=== PATIENT | female | born 1990 | race African-American/Black ===

== ENCOUNTER 2017-07-07 10:32 | Inpatient (IN) | payer MEDICAID ==
[2017-07-07] VITALS (12 sets, daily range): BP systolic 102–147; BP diastolic 65–95
[~2017-07-07] VITALS: Ht 167.6 cm; Wt 65.8 kg
[~2017-07-07 10:32] MED LIST: BACTRIM DS TAB1 EAC1 ORAL; BENADRYL50 MG ORAL; FERROUS SULFAT325 MG ORAL; HYDROCODON-ACE1 EA15 ORAL; IBUPROFEN600 MG ORAL; IBUPROFEN600 MG PO; MICROGESTIN FE1 EAC1 PO; NKM; NORCO 10-325 T1 EACH ORAL; NORCO 7.5/3251 EA ORAL; PREDNISONE20 MG ORAL
[2017-07-07] MEDS ORDERED: NKM (10:42)
[2017-07-07 11:27] LABS: BASOPHILS % (AUTO) 0.6 % (0.0-2.0); EOSINOPHILS % (AUTO) 0.1 % (0.0-3.0); HEMATOCRIT 36.5 % (37.0-47.0); HEMOGLOBIN 11.3 G/DL (12.0-16.0); LYMPHOCYTES % (AUTO) 15.4 % (20.0-45.0); MEAN CORPUSCULAR VOLUME 75 FL (80-99); MONOCYTES % (AUTO) 6.7 % (1.0-10.0); NEUTROPHILS % (AUTO) 77.1 % (45.0-75.0); PLATELET COUNT 185 K/UL (150-450); RED BLOOD COUNT 4.87 M/UL (4.20-5.40); RED CELL DISTRIBUTION WIDTH 17.9 % (11.6-14.8); WHITE BLOOD COUNT 7.9 K/UL (4.8-10.8)
[2017-07-07 11:44] LABS: ALANINE AMINOTRANSFERASE 20 U/L (12-78); ALBUMIN 4.3 G/DL (3.4-5.0); ALBUMIN/GLOBULIN RATIO 1.3 (1.0-2.7); ALKALINE PHOSPHATASE 67 U/L (46-116); ANION GAP 8 mmol/L (5-15); ASPARTATE AMINO TRANSFERASE 11 U/L (15-37); BILIRUBIN,TOTAL 0.7 MG/DL (0.2-1.0); BLOOD UREA NITROGEN 10 mg/dL (7-18); CALCIUM 9.4 MG/DL (8.5-10.1); CARBON DIOXIDE 28 MMOL/L (21-32); CHLORIDE 103 MMOL/L (98-107); CREATININE 0.8 MG/DL (0.55-1.30); POTASSIUM 4.2 MMOL/L (3.5-5.1); SODIUM 139 MMOL/L (136-145)
[2017-07-07 12:30] LABS: APPEARANCE,URINE CLEAR; BILIRUBIN, URINE NEGATIVE (NEGATIVE); COLOR,URINE PALE YELLOW; GLUCOSE, URINE (UA) NEGATIVE (NEGATIVE); KETONES,URINE NEGATIVE (NEGATIVE); LEUKOCYTE ESTERASE ,URINE 1+ (NEGATIVE); NITRITE,URINE NEGATIVE (NEGATIVE); PH,URINE 7 (4.5-8.0); PROTEIN,URINE NEGATIVE (NEGATIVE); UROBILINOGEN,URINE NORMAL MG/DL (0.0-1.0)
--- NOTE | 2017-07-07 13:44 | Diagnostic Imaging Report ---
Clinical Indication: Abdominal pain x1 day Technique: No oral contrast utilized, per emergency room physician request IV administration nonionic contrast. Venous phase spiral acquisition obtained through the abdomen and pelvis. Multiplanar reconstructions were generated. Total dose length product 551 mGycm. CTDIvol(s) 11.7 mGy. Dose reduction achieved using automated exposure control Comparison: None Findings: Lack of enteric contrast limits assessment of the GI tract Blind ending tubular structure consistent with a somewhat enlarged, and therefore presumably inflamed, appendix is seen inferomedial to the cecum. There is a slight degree of inflammation of the surrounding fat No evidence of diverticulosis or diverticulitis. No small bowel distention. Free pelvic fluid is demonstrated. No free intraperitoneal air. There is slight diastasis of the rectus abdominis tendon. The distal esophagus, stomach, duodenum are unremarkable. The liver, gallbladder, bile ducts, pancreas, spleen, adrenals, kidneys are unremarkable. No retroperitoneal or mesenteric mass or adenopathy. No pelvic mass or adenopathy. There is a complex fracture partially collapsed follicle in the right ovary. The included lung bases are clear. The bones are unremarkable. Impression: Positive for uncomplicated acute appendicitis Complex probably partially collapsed right ovarian cyst Free fluid in the pelvic cul-de-sac, most likely physiologic Findings phoned to Dr. Cantu in the emergency room at the time of interpretation The CT scanner at [facility] is accredited by the [employer] and the scans are performed using protocols designed to limit radiation exposure to as low as reasonably achievable to attain images of sufficient resolution adequate for diagnostic evaluation.
--- NOTE | 2017-07-07 15:33 | Emergency Room Report ---
History of Present Illness General Chief Complaint: Abdominal Pain Source: Patient Present Illness HPI Patient presents emergency department today complaining of right lower quadrant abdominal pain. Associated nausea but no vomiting. Patient denies any fever chest pain or shortness of breath. Patient was concerned that it might be appendicitis. Patient denies any dysuria or frequency. Patient denies any vaginal discharge. No other complaints are noted. Symptoms noted to be moderate. No other modifying factors. No other associated signs and symptoms. No other complaints were noted. Allergies: Coded Allergies: PENICILLINS (Verified Allergy, Severe, unknown, 06/12/16) Patient History Past Medical History: none Past Surgical History: none Pertinent Family History: none Social History: Denies: smoking, alcohol use, drug use Last Menstrual Period: 06/15/17 Now: No Reviewed Nursing Documentation: PMH: Agreed, PSxH: Agreed Nursing Documentation-PMH Past Medical History: No History, Except For Review of Systems All Other Systems: negative except mentioned in HPI Physical Exam Vital Signs Date Time Temp Pulse Resp B/P (MAP) Pulse Ox O2 Delivery O2 Flow Rate FiO2 07/07/17 10:37 98.1 84 18 111/76 100 Room Air Sp02 EP Interpretation: reviewed, normal General Appearance: normal inspection, well appearing, no apparent distress, alert Head: atraumatic Eyes: bilateral eye normal inspection ENT: normal ENT inspection, hearing grossly normal, normal voice Neck: normal inspection, full range of motion, supple, no bony tend Respiratory: normal inspection, lungs clear, normal breath sounds, no respiratory distress, no retraction, no wheezing Cardiovascular #1: regular rate, rhythm, no edema Gastrointestinal: normal inspection, normal bowel sounds, soft, no guarding, no hernia, tenderness - right lower quadrant Genitourinary: no CVA tenderness Musculoskeletal: normal inspection, back normal, normal range of motion Neurologic: normal inspection, alert, responsive, speech normal Psychiatric: normal inspection, judgement/insight normal, mood/affect normal Skin: normal inspection, normal color, no rash Medical Decision Making Diagnostic Impression: Primary Impression: Appendicitis ER Course Patient presents to the emergency department today complaining of abdominal pain. Differential considerations include acute pancreatitis, cholecystitis, gastritis, hepatitis, appendicitis just to name a few. Given the severity of the patient's presentation I felt this is a highly complex patient. This patient required extensive workup. Patient laboratory workup was not impressive. However patient exam is concerning for appendicitis. CT scan was obtained which confirms the presence of appendicitis. Patient's medical group is [facility]. Therefore patient was admitted to Dr. Araujo. He was notified and accepted the patient. Case was also discussed with Dr. Obregon who agreed to evaluate patient and take the patient to surgery. Patient was started on IV antibiotics. Patient will be admitted to [facility] further treatment Labs Test 07/07/17 11:00 White Blood Count 7.9 K/UL (4.8-10.8) Red Blood Count 4.87 M/UL (4.20-5.40) Hemoglobin 11.3 G/DL (12.0-16.0) Hematocrit 36.5 % (37.0-47.0) Mean Corpuscular Volume 75 FL (80-99) Mean Corpuscular Hemoglobin 23.2 PG (27.0-31.0) Mean Corpuscular Hemoglobin Concent 30.9 G/DL (32.0-36.0) Red Cell Distribution Width 17.9 % (11.6-14.8) Platelet Count 185 K/UL (150-450) Mean Platelet Volume 9.7 FL (6.5-10.1) Neutrophils (%) (Auto) 77.1 % (45.0-75.0) Lymphocytes (%) (Auto) 15.4 % (20.0-45.0) Monocytes (%) (Auto) 6.7 % (1.0-10.0) Eosinophils (%) (Auto) 0.1 % (0.0-3.0) Basophils (%) (Auto) 0.6 % (0.0-2.0) Prothrombin Time 10.0 SEC (9.30-11.50) Prothromb Time International Ratio 1.0 (0.9-1.1) Activated Partial Thromboplast Time 29 SEC (23-33) Urine Color Pale yellow Urine Appearance Clear Urine pH 7 (4.5-8.0) Urine Specific [place] 1.005 (1.005-1.035) Urine Protein Negative (NEGATIVE) Urine Glucose (UA) Negative (NEGATIVE) Urine Ketones Negative (NEGATIVE) Urine Occult Blood Negative (NEGATIVE) Urine Nitrite Negative (NEGATIVE) Urine Bilirubin Negative (NEGATIVE) Urine Urobilinogen Normal MG/DL (0.0-1.0) Urine Leukocyte Esterase 1+ (NEGATIVE) Urine RBC 0-2 /HPF (0 - 2) Urine WBC 2-4 /HPF (0 - 2) Urine Squamous Epithelial Cells Moderate /LPF (NONE/OCC) Urine Bacteria Few /HPF (NONE) Urine HCG, Qualitative Negative Sodium Level 139 MMOL/L (136-145) Potassium Level 4.2 MMOL/L (3.5-5.1) Chloride Level 103 MMOL/L (98-107) Carbon Dioxide Level 28 MMOL/L (21-32) Anion Gap 8 mmol/L (5-15) Blood Urea Nitrogen 10 mg/dL (7-18) Creatinine 0.8 MG/DL (0.55-1.30) Estimat Glomerular Filtration Rate > 60 mL/min (>60) Glucose Level 91 MG/DL (74-106) Calcium Level 9.4 MG/DL (8.5-10.1) Total Bilirubin 0.7 MG/DL (0.2-1.0) Aspartate Amino Transf (AST/SGOT) 11 U/L (15-37) Alanine Aminotransferase (ALT/SGPT) 20 U/L (12-78) Alkaline Phosphatase 67 U/L (46-116) Total Protein 7.6 G/DL (6.4-8.2) Albumin 4.3 G/DL (3.4-5.0) Globulin 3.3 g/dL Albumin/Globulin Ratio 1.3 (1.0-2.7) Lipase 70 U/L (73-393) Last Vital Signs Date Time Temp Pulse Resp B/P (MAP) Pulse Ox O2 Delivery O2 Flow Rate FiO2 07/07/17 13:23 98.1 15 102/65 100 Room Air 07/07/17 10:37 84 Status: improved Disposition: ADMITTED INPATIENT Condition: Serious Referrals: [facility],REFERRING (PCP) MARGARETH NO M.D. Jul 07, 2017 15:33
--- NOTE | 2017-07-07 17:20 | Pre-Procedure Note/Attestation ---
Pre-Procedure Note/Attestation Complete Prior to Procedure Planned Procedure: not applicable Procedure Narrative: lap vs open appendectomy Indications for Procedure Pre-Operative Diagnosis: acute appendicitis Attestation I attest that I discussed the nature of the procedure; its benefits; risks and complications; and alternatives (and the risks and benefits of such alternatives ), prior to the procedure, with the patient (or the patient's legal sales representative [employer]). I attest that, if there was a reasonable possibility of needing a blood transfusion, the patient (or the patient's legal sales representative raw fibers) was given the [facility] standardized written summary, pursuant to the [place] Blood Safety Act ([place] Health and Safety Code # 1645, as amended). I attest that I re-evaluated the patient just prior to the surgery and that there has been no change in the patient's H&P, except as documented below: Jayant Obregon Jul 07, 2017 17:20
--- NOTE | 2017-07-07 17:20 | Consultation ---
History of Present Illness General Date patient seen: Jul 07, 2017 Chief Complaint: Abdominal Pain Reason for Consultation: acute appendicitis Present Illness HPI 27 year old otherwise healthy female presents with complains of right lower quadrant abdominal pain x 1 day. States that she was in her normal state of health until yesterday when she noted some vague discomfort in her RLQ. first believed it to be gas but pain persisted and began to worsen. as pain worsened she decided to come to ED for evaluation. pain described as cramping RLQ pain. no associated nausea or emesis. no fever or chills. normal BM today. no prior similar events. In ED, she had CT A/P which demonstrated findings consistent with acute appendicitis. Surgery called to evaluate Allergies: Coded Allergies: PENICILLINS (Verified Allergy, Severe, unknown, 06/12/16) Medication History Scheduled No Known Medications* (NKM - No Known Medications*), 0 ., (Reported) Trimethoprim/Sulfamethoxazole 160/800* (Bactrim Ds Tablet*), 1 TAB ORAL Q12H Trimethoprim/Sulfamethoxazole 160/800* (Bactrim Ds Tablet*), 1 TAB ORAL Q12H Scheduled PRN Hydrocodone/Acetaminophen 5-325* (Hydrocodone/Acetaminophen 5-325*), 1 TAB ORAL Q6H PRN for For Pain Patient History History Provided By: Patient Healthcare decision maker Resuscitation status Advanced Directive on File Past Medical/Surgical History Past Medical/Surgical History: (1) Appendicitis Review of Systems All Other Systems: negative except mentioned in HPI Physical Exam General Appearance: no apparent distress, alert Lines, tubes and drains: peripheral HEENT: normocephalic, mucous membranes moist, PERRL Neck: normal inspection Respiratory/Chest: normal breath sounds, no respiratory distress, no accessory muscle use Cardiovascular/Chest: normal peripheral pulses, normal rate, regular rhythm Abdomen: normal bowel sounds, soft, no organomegaly, no mass, other - tender in RLQ with voluntary guarding and rebound. prior c section scar with keloid Extremities: normal inspection Skin Exam: normal pigmentation Neurologic: alert, oriented x 3 Last 24 Hour Vital Signs Date Time Temp Pulse Resp B/P (MAP) Pulse Ox O2 Delivery O2 Flow Rate FiO2 07/07/17 16:00 98.7 66 17 113/76 100 Room Air 07/07/17 15:27 78 18 104/66 100 Room Air 07/07/17 13:23 98.1 15 102/65 100 Room Air 07/07/17 10:37 98.1 84 18 111/76 100 Room Air Intake and Output 07/07/17 07/08/17 19:00 07:00 Intake Total 1100 ml Balance 1100 ml Intake Oral 100 ml IV Total 1000 ml Laboratory Tests Test 07/07/17 11:00 White Blood Count 7.9 K/UL (4.8-10.8) Red Blood Count 4.87 M/UL (4.20-5.40) Hemoglobin 11.3 G/DL (12.0-16.0) L Hematocrit 36.5 % (37.0-47.0) L Mean Corpuscular Volume 75 FL (80-99) L Mean Corpuscular Hemoglobin 23.2 PG (27.0-31.0) L Mean Corpuscular Hemoglobin Concent 30.9 G/DL (32.0-36.0) L Red Cell Distribution Width 17.9 % (11.6-14.8) H Platelet Count 185 K/UL (150-450) Mean Platelet Volume 9.7 FL (6.5-10.1) Neutrophils (%) (Auto) 77.1 % (45.0-75.0) H Lymphocytes (%) (Auto) 15.4 % (20.0-45.0) L Monocytes (%) (Auto) 6.7 % (1.0-10.0) Eosinophils (%) (Auto) 0.1 % (0.0-3.0) Basophils (%) (Auto) 0.6 % (0.0-2.0) Prothrombin Time 10.0 SEC (9.30-11.50) Prothromb Time International Ratio 1.0 (0.9-1.1) Activated Partial Thromboplast Time 29 SEC (23-33) Urine Color Pale yellow Urine Appearance Clear Urine pH 7 (4.5-8.0) Urine Specific [place] 1.005 (1.005-1.035) Urine Protein Negative (NEGATIVE) Urine Glucose (UA) Negative (NEGATIVE) Urine Ketones Negative (NEGATIVE) Urine Occult Blood Negative (NEGATIVE) Urine Nitrite Negative (NEGATIVE) Urine Bilirubin Negative (NEGATIVE) Urine Urobilinogen Normal MG/DL (0.0-1.0) Urine Leukocyte Esterase 1+ (NEGATIVE) H Urine RBC 0-2 /HPF (0 - 2) Urine WBC 2-4 /HPF (0 - 2) Urine Squamous Epithelial Cells Moderate /LPF (NONE/OCC) H Urine Bacteria Few /HPF (NONE) Urine HCG, Qualitative Negative Sodium Level 139 MMOL/L (136-145) Potassium Level 4.2 MMOL/L (3.5-5.1) Chloride Level 103 MMOL/L (98-107) Carbon Dioxide Level 28 MMOL/L (21-32) Anion Gap 8 mmol/L (5-15) Blood Urea Nitrogen 10 mg/dL (7-18) Creatinine 0.8 MG/DL (0.55-1.30) Estimat Glomerular Filtration Rate > 60 mL/min (>60) Glucose Level 91 MG/DL (74-106) Calcium Level 9.4 MG/DL (8.5-10.1) Total Bilirubin 0.7 MG/DL (0.2-1.0) Aspartate Amino Transf (AST/SGOT) 11 U/L (15-37) L Alanine Aminotransferase (ALT/SGPT) 20 U/L (12-78) Alkaline Phosphatase 67 U/L (46-116) Total Protein 7.6 G/DL (6.4-8.2) Albumin 4.3 G/DL (3.4-5.0) Globulin 3.3 g/dL Albumin/Globulin Ratio 1.3 (1.0-2.7) Lipase 70 U/L (73-393) L Height (Feet): 5 Height (Inches): 6.00 Weight (Pounds): 145 Medications Current Medications Medications (Trade) Dose Ordered Sig/Mohinder Route PRN Reason Start Time Stop Time Status Last Admin Dose Admin Dextrose (Dextrose 50%) STAT PRN IV Hypoglycemia 07/07/17 17:15 08/06/17 17:14 UNV Assessment/Plan Problem List: (1) Appendicitis Assessment & Plan: 27F with early acute appendicitis. Afebrile, HD stable, labs okay, CT as above, exam as above. -discussed findings with patient. recommend lap vs open appendectomy. -will proceed to OR tonight -NPO -IV fluids -IV Abx -consent ICD Codes: K37 - Unspecified appendicitis SNOMED: [id number] Qualifiers: Qualified Codes: K35.3 - Acute appendicitis with localized peritonitis Status: stable Benyamini,Jayant Jul 07, 2017 17:20
--- NOTE | 2017-07-07 17:20 | Pre-Procedure Note/Attestation ---
Pre-Procedure Note/Attestation Complete Prior to Procedure Planned Procedure: not applicable Procedure Narrative: lap vs open appendectomy Indications for Procedure Pre-Operative Diagnosis: acute appendicitis Attestation I attest that I discussed the nature of the procedure; its benefits; risks and complications; and alternatives (and the risks and benefits of such alternatives ), prior to the procedure, with the patient (or the patient's legal novelties sales representative). I attest that, if there was a reasonable possibility of needing a blood transfusion, the patient (or the patient's legal novelties sales representative) was given the [facility] standardized written summary, pursuant to the Iain [place] Blood Safety Act ([place] Health and Safety Code # 1645, as amended). I attest that I re-evaluated the patient just prior to the surgery and that there has been no change in the patient's H&P, except as documented below: Jayant Obregon Jul 07, 2017 17:20
--- NOTE | 2017-07-07 17:20 | Pre-Procedure Note/Attestation ---
Pre-Procedure Note/Attestation Complete Prior to Procedure Planned Procedure: not applicable Procedure Narrative: lap vs open appendectomy Indications for Procedure Pre-Operative Diagnosis: acute appendicitis Attestation I attest that I discussed the nature of the procedure; its benefits; risks and complications; and alternatives (and the risks and benefits of such alternatives ), prior to the procedure, with the patient (or the patient's legal leather goods sales representative). I attest that, if there was a reasonable possibility of needing a blood transfusion, the patient (or the patient's legal leather goods sales representative) was given the [facility] standardized written summary, pursuant to the Iain [place] Blood Safety Act ([place] Health and Safety Code # 1645, as amended). I attest that I re-evaluated the patient just prior to the surgery and that there has been no change in the patient's H&P, except as documented below: Jayant Obregon Jul 07, 2017 17:20
[2017-07-07] MEDS ORDERED: Ropivacaine 5mg/ml Vial 30ml INJ ONE (17:33)
--- NOTE | 2017-07-07 17:37 | Immediate Post-Op Evaluation ---
Immediate Post-Op Evalulation Immediate Post-Op Evalulation Procedure: Laparoscopic Appendectomy Date of Evaluation: Jul 07, 2017 Time of Evaluation: 19:22 IV Fluids: 500 LR Blood Products: 0 Estimated Blood Loss: 20 Urinary Output: 0 Blood Pressure Systolic: 137 Blood Pressure Diastolic: 84 Pulse Rate: 69 Respiratory Rate: 16 O2 Sat by Pulse Oximetry: 100 Temperature (Fahrenheit): 98.1 Pain Score (1-10): 2 Nausea: No Vomiting: No Complications 0 Patient Status: awake, reacts, patent, extubated, none Hydration Status: adequate Dru Grams Ancef IV Given Within 1 Hr of Incision: Yes Time Given: 17:57 Dale Olivarez MD Jul 07, 2017 17:37
--- NOTE | 2017-07-07 17:37 | Anethesia Preoperative Eval ---
Anesthesia Pre-op PMH/ROS General Date of Evaluation: Jul 07, 2017 Time of Evaluation: 17:46 Anesthesiologist: Juanis ASA Score: ASA 1 - Emergency Mallampati Score Class I : Soft palate, uvula, fauces, pillars visible Class II: Soft palate, uvula, fauces visible Class III: Soft palate, base of uvula visible Class IV: Only hard plate visible Mallampati Classification: Class I Surgeon: Mindi Diagnosis: Acute Appendicitis Surgical Procedure: Laparoscopic Appendectomy Anesthesia History: none Family History: no anesthesia problems Allergies: Coded Allergies: PENICILLINS (Verified Allergy, Severe, unknown, 06/12/16) Medications: see eMAR Past Medical History Hematology/Immune: Reports: anemia Anesthesia Pre-op Phys. Exam Physician Exam Last Vital Signs Date Time Temp Pulse Resp B/P (MAP) Pulse Ox O2 Delivery O2 Flow Rate FiO2 07/07/17 16:00 98.7 66 17 113/76 100 Room Air Constitutional: NAD Neurologic: CN 2-12 intact Cardiovascular: RRR Respiratory: CTA Gastrointestinal: S/NT/ND Airway Exam Mallampati Score: Class I MO: full ROM: full Teeth: intact Anesthesia Pre-op A/P Labs Hematology Test 07/07/17 11:00 White Blood Count 7.9 K/UL (4.8-10.8) Red Blood Count 4.87 M/UL (4.20-5.40) Hemoglobin 11.3 G/DL (12.0-16.0) L Hematocrit 36.5 % (37.0-47.0) L Mean Corpuscular Volume 75 FL (80-99) L Mean Corpuscular Hemoglobin 23.2 PG (27.0-31.0) L Mean Corpuscular Hemoglobin Concent 30.9 G/DL (32.0-36.0) L Red Cell Distribution Width 17.9 % (11.6-14.8) H Platelet Count 185 K/UL (150-450) Mean Platelet Volume 9.7 FL (6.5-10.1) Neutrophils (%) (Auto) 77.1 % (45.0-75.0) H Lymphocytes (%) (Auto) 15.4 % (20.0-45.0) L Monocytes (%) (Auto) 6.7 % (1.0-10.0) Eosinophils (%) (Auto) 0.1 % (0.0-3.0) Basophils (%) (Auto) 0.6 % (0.0-2.0) Coagulation Test 07/07/17 11:00 Prothrombin Time 10.0 SEC (9.30-11.50) Prothromb Time International Ratio 1.0 (0.9-1.1) Activated Partial Thromboplast Time 29 SEC (23-33) Chemistry Test 07/07/17 11:00 Sodium Level 139 MMOL/L (136-145) Potassium Level 4.2 MMOL/L (3.5-5.1) Chloride Level 103 MMOL/L (98-107) Carbon Dioxide Level 28 MMOL/L (21-32) Anion Gap 8 mmol/L (5-15) Blood Urea Nitrogen 10 mg/dL (7-18) Creatinine 0.8 MG/DL (0.55-1.30) Estimat Glomerular Filtration Rate > 60 mL/min (>60) Glucose Level 91 MG/DL (74-106) Calcium Level 9.4 MG/DL (8.5-10.1) Total Bilirubin 0.7 MG/DL (0.2-1.0) Aspartate Amino Transf (AST/SGOT) 11 U/L (15-37) L Alanine Aminotransferase (ALT/SGPT) 20 U/L (12-78) Alkaline Phosphatase 67 U/L (46-116) Total Protein 7.6 G/DL (6.4-8.2) Albumin 4.3 G/DL (3.4-5.0) Globulin 3.3 g/dL Albumin/Globulin Ratio 1.3 (1.0-2.7) Lipase 70 U/L (73-393) L Urine Test Test 07/07/17 11:00 Urine HCG, Qualitative Negative Risk Assessment & Plan Assessment: ASA 1E Plan: GA, BIS, Glidescope Status Change Before Surgery: No Pre-Antibiotics Dru Grams Ancef IV Given Within 1 Hr of Incision: Yes Time Given: 17:57 Dale Olivarez MD Jul 07, 2017 17:37
--- NOTE | 2017-07-07 17:38 | 48 Hour Post Anesthesia Eval ---
Post Anesthesia Evaluation Procedure: Laparoscopic Appendectomy Date of Evaluation: Jul 07, 2017 Time of Evaluation: 12:32 Blood Pressure Systolic: 122 0: 67 Pulse Rate: 73 Respiratory Rate: 18 Temperature (Fahrenheit): 98 O2 Sat by Pulse Oximetry: 100 Airway: patent Nausea: No Vomiting: No Pain Intensity: 2 Hydration Status: adequate Cardiopulmonary Status: Stable Mental Status/LOC: patient returned to baseline Follow-up Care/Observations: 0 Post-Anesthesia Complications: 0 Follow-up care needed: N/A Dale Olivarez MD Jul 07, 2017 17:38
[2017-07-07] MEDS ORDERED: Lidocaine 1% MPF 10mg/ml 5ml ONE (17:45)
[2017-07-07] MEDS ORDERED: Dexamethasone 4mg/ml vial ONE (17:45)
[2017-07-07] MEDS ORDERED: fentaNYL 100 mcg/2 mL IV ONE (17:45)
[2017-07-07] MEDS ORDERED: Zemuron 50mg/5ml Inj IV ONE (17:45)
[2017-07-07] MEDS ORDERED: Glycopyrrolate 0.2mg/ml 1ml Vial ONE (17:45)
[2017-07-07] MEDS ORDERED: Alfentanil 2ml Inj ONE (17:45)
[2017-07-07] MEDS ORDERED: Neostigmine 1mg/ml 10ml Inj ONE (17:45)
[2017-07-07] MEDS ORDERED: Sterile Water Irrig 1000ml IRRIG ONE (17:45)
[2017-07-07] MEDS ORDERED: Propofol 200mg/20ml IV ONE (17:45)
[2017-07-07] MEDS ORDERED: LR 1000ml ONE (17:45)
[2017-07-07] MEDS ORDERED: NS Irrig 1000ml IRRIG ONE (17:55)
--- NOTE | 2017-07-07 19:10 | Brief Operative Note ---
Immediate Post Operative Note Operative Note Pre-op Diagnosis: acute appendicitis Post-op Diagnosis: same as pre-op Surgeon: gus Anesthesiologist: adams Anesthesia: general Specimen: yes - appendix Complications: none Condition: stable Fluids: see records Drains: none Implant(s) used?: No Jayant Obregon Jul 07, 2017 19:10
[2017-07-07] MEDS ORDERED: Norco 5mg/325mg tab ORAL PRN ×2 (19:15→19:30)
[2017-07-07] MEDS ORDERED: DiphenhydrAMINE 50mg/ml Inj IVP PRN ×2 (19:15→19:30)
--- NOTE | 2017-07-07 19:23 | General Progress Note ---
Progress Note Progress Note Surgery: s/p lap appy for acute uncomplicated appendicitis. doing well. -clear liquids. advance as tolerated -TKO IV fluids once able to tolerate oral diet -ambulate and Out of bed -incentive spirometry -d/c planning for 07/08/2017 follow up with me next monday. call [phone] for appointment Jayant Obregon Jul 07, 2017 19:23
--- NOTE | 2017-07-07 19:23 | General Progress Note ---
Progress Note Progress Note Surgery: s/p lap appy for acute uncomplicated appendicitis. doing well. -clear liquids. advance as tolerated -TKO IV fluids once able to tolerate oral diet -ambulate and Out of bed -incentive spirometry -d/c planning for 07/08/2017 follow up with me next monday. call [phone] for appointment Jayant Obregon Jul 07, 2017 19:23
--- NOTE | 2017-07-07 19:23 | General Progress Note ---
Progress Note Progress Note Surgery: s/p lap appy for acute uncomplicated appendicitis. doing well. -clear liquids. advance as tolerated -TKO IV fluids once able to tolerate oral diet -ambulate and Out of bed -incentive spirometry -d/c planning for 07/08/2017 follow up with me next monday. call [phone] for appointment Jayant Obregon Jul 07, 2017 19:23
[2017-07-07] MEDS ORDERED: LR 1000ml 1,000 ML IVLG SCH (19:24)
[2017-07-07] MEDS ORDERED: fentaNYL 100 mcg/2 mL IV PRN (19:30)
[2017-07-07] MEDS ORDERED: Hydromorphone 0.5mg/0.5ml inj IVP PRN (19:30)
[2017-07-07] MEDS ORDERED: Norco 7.5mg/325mg tab ORAL PRN (19:30)
[2017-07-07] MEDS ORDERED: Metoclopramide 10mg/2ml Inj IVP PRN (19:30)
[2017-07-07] MEDS ORDERED: Midazolam 2mg/2ml Inj IVP PRN (19:30)
[2017-07-07] MEDS ORDERED: Atropine Inj 1mg/10ml Syr IV PRN (19:30)
[2017-07-07] MEDS ORDERED: Ketorolac 60mg Inj IV PRN (19:30)
[2017-07-07] MEDS ORDERED: oxyCODONE HCL/Acetaminophen 5/325mg ORAL PRN (19:30)
[2017-07-07] MEDS ORDERED: LORazepam Inj 2mg/ml 1ml IV PRN (19:30)
[2017-07-07] MEDS ORDERED: Ketorolac 30mg Inj IV PRN (19:30)
[2017-07-07] MEDS: HYDROmorphone 1mg/ml Carpuject IVP PRN (21:01)
[2017-07-08] VITALS: BP 146/71
[2017-07-08] MEDS: HYDROmorphone 1mg/ml Carpuject IVP PRN (00:06)
[2017-07-08] MEDS: Norco 10mg/325mg tab ORAL PRN ×2 (02:27→09:53)
[2017-07-08 04:03] VITALS: BP 133/80
[2017-07-08] MEDS: Ketorolac 30mg Inj IV PRN ×2 (04:12→13:20)
[2017-07-08 08:00] VITALS: BP 118/74
[2017-07-08] MEDS ORDERED: Heparin 5000 units/ml inj SUBQ SCH (09:00)
[2017-07-08] MEDS ORDERED: Docusate 100mg cap ORAL SCH (09:00)
[2017-07-08 12:00] VITALS: BP 125/61
--- NOTE | 2017-07-08 12:07 | General Progress Note ---
Progress Note Progress Note Surgery: no acute events since surgery. doing well. no abdominal pain. tolerating diet. ambulatory. no n/v/f/c. some right shoulder pain which is common after lap surgery and should resolved in 1-2 days. abdomen soft, nt/nd, bs+, incisions c/d/i okay to d/c home Rx written follow up with me in 1-2 weeks. call [phone] for appointment. Jayant Obregon Jul 08, 2017 12:07
--- NOTE | 2017-07-08 12:07 | General Progress Note ---
Progress Note Progress Note Surgery: no acute events since surgery. doing well. no abdominal pain. tolerating diet. ambulatory. no n/v/f/c. some right shoulder pain which is common after lap surgery and should resolved in 1-2 days. abdomen soft, nt/nd, bs+, incisions c/d/i okay to d/c home Rx written follow up with me in 1-2 weeks. call [phone] for appointment. Jayant Obregon Jul 08, 2017 12:07
--- NOTE | 2017-07-08 12:07 | General Progress Note ---
Progress Note Progress Note Surgery: no acute events since surgery. doing well. no abdominal pain. tolerating diet. ambulatory. no n/v/f/c. some right shoulder pain which is common after lap surgery and should resolved in 1-2 days. abdomen soft, nt/nd, bs+, incisions c/d/i okay to d/c home Rx written follow up with me in 1-2 weeks. call [phone] for appointment. Jayant Obregon Jul 08, 2017 12:07
--- NOTE | 2017-07-08 17:45 | History and Physical Report ---
DATE OF ADMISSION: 07/07/2017 HISTORY OF PRESENT ILLNESS: This is a 27-year-old female who presented to the hospital with right lower quadrant pain. She was seen and worked up and found to have appendicitis. She underwent a laparoscopic last time which was uncomplicated. PAST MEDICAL HISTORY: Noncontributory. HOME MEDICATIONS: Bactrim only. In the past, she has taken [place] as well. ALLERGIES: Penicillin. SOCIAL HISTORY: No history of alcohol or tobacco usage. REVIEW OF SYSTEMS: The patient denies any headaches, hematemesis, melena or hematochezia. PHYSICAL EXAMINATION: GENERAL: A young female. HEENT: Unremarkable. CHEST: Clear breath sounds. ABDOMEN: Soft. EXTREMITIES: There is no edema. NEUROLOGIC: Nonfocal. LABORATORY DATA: Lab testing noncontributory with normal CBC and BMP. Imaging study discussed above showed evidence for dilated appendix, suspicious for acute appendicitis. IMPRESSION: Status post laparoscopic appendectomy for appendicitis. DISCUSSION: The patient is complaining of right shoulder pain, which I suspect may be due to diaphragm irritation from CO2. At this point, she is comfortable. She is on a regular diet. We will discharge today with p.o. [place]. Outpatient follow up with Dr. Obregon in one weeks time. Abilio Orantes M.D. DR: ALIZA JOB#: [id number] CC:
--- NOTE | 2017-07-10 08:45 | Operative Note - Dictated ---
DATE OF OPERATION: 07/07/2017 PREOPERATIVE DIAGNOSIS: Acute appendicitis. POSTOPERATIVE DIAGNOSIS: Acute appendicitis. OPERATION PERFORMED: Laparoscopic appendectomy. ATTENDING SURGEON: Jayant Obregon M.D. CORPORATE MANAGER: None. ANESTHESIOLOGIST: Dale Olivarez M.D. ANESTHESIA: General [employer]. ESTIMATED BLOOD LOSS: Minimal. IV FLUIDS: Please see anesthesia records. COMPLICATIONS: None. SPECIMENS: Appendix sent to pathology for review. WOUND CLASSIFICATION: Class II. COUNTS: Surgeon and needle count correct x2. ANTIBIOTICS: The patient was on scheduled Levaquin and Flagyl for active infection. INDICATIONS FOR PROCEDURE: This is a 27-year-old female, who presented to the emergency department with a history of one day worsening right lower quadrant abdominal pain. The patient states that it began with an initial dull cramping pain, which then progressively worsened to the point that she had to come to the emergency department. CT scan in the emergency department was consistent with acute non-perforated appendicitis. On examination, the patient had focal right lower quadrant tenderness with voluntary guarding and rebound consistent with diagnosis. Surgery was indicated. The risks, benefits, and alternatives of the surgery were discussed with the patient in detail. The patient expressed understanding and consented for surgery. OPERATIVE NOTE: The patient was taken to the operating room and placed on the operating table in supine position with bilateral arms out. All bony prominences were well padded with gel pads. SCDs were placed. No Levin catheter was placed given that the patient voided just prior to entering the operating room. The patient was on scheduled Levaquin and Flagyl intravenous for active infection prior to entering the operating room and he received a dosage prior to entering the operating room. Preoperative time-out was taken in identifying the patient, procedure, operative staff, and surgical staff. General anesthesia was induced and the patient was intubated. The abdomen was then prepped and draped in a standard surgical fashion. An umbilical midline incision was made using a #15 scalpel and taken down through the skin and fascia under direct visualization. The fascia was elevated and incised and the abdomen entered without complication. Open Joseluis trocar technique was used and Joseluis trocar was inserted under direct visualization. The abdomen was then insufflated at 12 to 15 mmHg. The patient tolerated the insufflation well. Laparoscope was then inserted and the abdomen was inspected. There was some murky fluid in the pelvis. No injury from the initial trocar placement was noted. An omental adhesion to the anterior abdominal wall was identified in the pelvis around the area where the patient had a prior incision and the appendix was identified as being dilated and within the right lower quadrant. Secondary trocars were placed under direct visualization beginning with a 5 mm suprapubic port followed by a 12 mm left lower quadrant port. Both ports were placed under direct visualization without complication. The omental adhesive band was in the operative field and in the way of the trocars and was released from the anterior abdominal wall with blunt dissection and electrocautery. This was done safely without complication. The murky fluid from the pelvis was evacuated. The remainder of the abdomen was inspected and no other abnormalities were noted. The appendix was then grasped, elevated, and retracted downwards. The base of the appendix was identified and a window was made in the base of the appendix using a laparoscopic Susanna grasper. Once appropriate window was made, a laparoscopic linear stapler was then used to divide the appendix at its base without complication. The mesoappendix was then identified and circumferentially dissected out and divided using a vascular load of the laparoscopic linear stapler. Once this was complete, the appendix was free and placed in endoscopic retrieval bag and removed from the left lower quadrant port. The appendix and mesoappendix staple lines were checked. There was mild oozing from the appendiceal staple line and two laparoscopic clips were placed and hemostasis was achieved. The mesoappendix staple line was satisfactory with good hemostasis. The right lower quadrant and pelvis were then irrigated with copious amounts of warm normal saline and suction. Following this, the abdomen was inspected and no fluid needing evacuation or other abnormalities are noted. At this time, we began the conclusion of our case. Secondary trocars were removed under direct visualization. The abdomen was allowed to desufflate and the umbilical trocar was removed. The umbilical fascia site and left lower quadrant fascia site were closed using a #0 Vicryl suture. The remaining skin incisions were then closed using a 4-0 Monocryl subcuticular suture. The local anesthetic was infiltrated in the incisions throughout the procedure as necessary. The wound sites were then cleansed and Steri-Strips and dressings were placed. The patient was extubated, awakened, and taken to the postanesthetic care unit in stable condition. Jayant Obregon M.D. DR: COURTNEY JOB#: [id number] CC: JESSICA
--- NOTE | 2017-07-11 07:15 | Discharge Summary 2 SIG ---
DATE OF ADMISSION: 07/07/2017 DATE OF DISCHARGE: 07/08/2017 REASON FOR ADMISSION: 27-year-old female, presented to the emergency room with a complaint of right lower quadrant pain with associated nausea, but no vomiting. The patient denied fever, chills, chest pain, or shortness of breath. The patient denied any dysuria or frequency. The patient denied any vaginal discharge. Workup in the emergency room revealed stable vital signs, pulse oximetry stable on room air, blood pressure normotensive, no fever. WBC - 7.9, mild anemia, hemoglobin -11.3, hematocrit -36.5, and stable platelets. Urinalysis was negative. Urine test negative. Electrolytes stable. CT of the abdomen and pelvis revealed acute uncomplicated appendicitis. Subsequently, Surgery consult was requested. The patient was admitted for further management, HOSPITAL STAY: The patient was admitted to medical surgical floor. The patient undergone on 07/07/2017 laparoscopic appendectomy for acute uncomplicated appendicitis. Course of recovery was uneventful. Surgery closely followed. Diet was slowly reintroduced. The patient started on clear liquid and advanced as tolerated. Initially on IV fluids, until tolerated diet. Pain management provided as needed. The patient was out of bed, ambulated, used incentive spirometry while in the bed. Surgeon cleared for discharge. The patient to follow up with the surgeon as an outpatient as recommended by surgeon. DISCHARGE DIAGNOSIS: 1. Acute appendicitis 2. s/p laparoscopic appendectomy 07/07 DISCHARGE MEDICATIONS: See medication reconciliation list. DISCHARGE INSTRUCTIONS: The patient was discharged home. Follow up with the surgeon in one week. Abilio Orantes M.D. I have been assigned to dictate discharge summary on this account and I was not involved in the patient's management. Kerline Kim (Vanchtein) N.P. DR: Lauren JOB#: [id number] CC: JESSICA
== END 2017-07-08 13:40 | disposition home or self-care (01) | DRG 225 ==
LOC: EMR 11:10 → 3E 14:18 → EDBEDREQ 14:45
PROC: 0DTJ4ZZ Resection of Appendix, Percutaneous Endoscopic Approach (ICD-10-PCS; principal; 2017-07-07 14:45)
DX: K35.80 Unspecified acute appendicitis (principal); Z88.0 Allergy status to penicillin
CPT/HCPCS: 36415; 74177; 80053; 81003; 81025; 83690; 85025; 85610; 85730; 94003; 94150; 99285; J2405; J2710; J3490

== ENCOUNTER 2017-07-23 01:06 | Emergency (ER) | payer MEDICAID ==
[~2017-07-23] VITALS: Ht 167.6 cm; Wt 63.5 kg
[2017-07-23] MEDS ORDERED: NKM (01:26)
[2017-07-23] MEDS ORDERED: Norco 5mg/325mg tab ORAL ONE (01:45)
[2017-07-23] MEDS ORDERED: DOXYCYCLINE MO100 MG ORAL (01:55)
[2017-07-23] MEDS ORDERED: HYDROCODON-ACE1 EA15 ORAL (01:55)
--- NOTE | 2017-07-23 01:56 | Emergency Room Report ---
History of Present Illness General Chief Complaint: Skin Rash/Abscess Source: Patient Present Illness HPI 27-year-old female with recurrent abscess to the left vaginal area. Seen her before for the same thing. She complaining of an abscess to that area it started yesterday and swell up tonight. Very painful. No fever chills no nausea vomiting. No drainage. No redness. Allergies: Coded Allergies: PENICILLINS (Verified Adverse Reaction, Mild, unknown, 07/23/17) nausea and vomiting Patient History Past Medical History: see triage record, old chart reviewed Past Surgical History: appy Pertinent Family History: none Social History: Denies: smoking Last Menstrual Period: 07/17/17 Now: No Immunizations: other Reviewed Nursing Documentation: PMH: Agreed, PSxH: Agreed Nursing Documentation-PMH Hx Cardiac Problems: No Hx Cancer: No Hx Gastrointestinal Problems: No Hx Neurological Problems: No Review of Systems Eye: Denies: eye pain, blurred vision ENT: Denies: ear pain, nose congestion, throat swelling Respiratory: Denies: cough, shortness of breath Cardiovascular: Denies: chest pain, palpitations Gastrointestinal: Denies: abdominal pain, diarrhea, nausea, vomiting Musculoskeletal: Denies: back pain, joint pain Skin: Denies: rash Neurological: Denies: headache, numbness Endocrine: Denies: increased thirst, increased urine Hematologic/Lymphatic: Denies: easy bruising All Other Systems: negative except mentioned in HPI Physical Exam Vital Signs Date Time Temp Pulse Resp B/P (MAP) Pulse Ox O2 Delivery O2 Flow Rate FiO2 07/23/17 01:22 98.2 83 16 121/80 98 Room Air vitals normal Sp02 EP Interpretation: reviewed, normal General Appearance: well appearing, no apparent distress, alert Head: normocephalic, atraumatic Eyes: bilateral eye PERRL, bilateral eye EOMI ENT: hearing grossly normal, normal pharynx Neck: full range of motion, supple, no meningismus Respiratory: chest non-tender, lungs clear, normal breath sounds Cardiovascular #1: regular rate, rhythm, no murmur Gastrointestinal: normal bowel sounds, non tender, no mass, no organomegaly, no bruit, non-distended Genitourinary: other - On the outside of the vaginal wall on the left there is an indurated area of 2-3 cm. Tender to palpation. Fluctuant. Musculoskeletal: back normal, gait/station normal, normal range of motion Neurologic: alert, oriented x3 Psychiatric: mood/affect normal Skin: warm/dry Procedures Incision and Drainage Incision and Drainage : Consent: Verbal Site: Vagina Blade Size: 11 I & D Procedure: betadine prep Anesthesia: 1% Lidocaine Volume Anesthetic (ccs): 5 Patient Tolerated: Well Complications: None Progress Area clean with Betadine and chlorhexidine. Local anesthetic 1% lidocaine. I made a 2 cm incision. There was purulent discharge. At the end of it there was a small cottage cheesy material. I also remove part of the capsule of the sebaceous cyst. She tolerated procedure without a problem. Medical Decision Making Diagnostic Impression: Primary Impression: Abscess Additional Impression: Sebaceous cyst ER Course Patient with an abscess from her sebaceous cyst. No evidence of deep infection. No necrotizing fasciitis. Last time she did not grow out MRSA. Last Vital Signs Date Time Temp Pulse Resp B/P (MAP) Pulse Ox O2 Delivery O2 Flow Rate FiO2 07/23/17 01:22 98.2 83 16 121/80 98 Room Air Status: improved Disposition: HOME, SELF-CARE Condition: Stable Scripts Hydrocodone/Acetaminophen 5-325* (HYDROCODONE/ACETAMINOPHEN 5-325*) 1 Each Tablet 1 TAB ORAL Q6H Y for For Pain, #20 TAB 0 Refills Prov: AJIT ZAYAS M.D. 07/23/17 Doxycycline Monohydrate* (DOXYCYCLINE MONOHYDRATE*) 100 Mg Capsule 100 MG ORAL Q12H, #14 CAP 0 Refills Prov: AJIT ZAYAS M.D. 07/23/17 Referrals: NON PHYSICIAN (PCP) Additional Instructions: Followup with your DrTl in 7 days. Return if symptom worsen. AJIT ZAYAS M.D. Jul 23, 2017 01:55
[2017-07-23 02:03] VITALS: BP 126/78
== END 2017-07-23 02:00 | disposition home or self-care (01) ==
LOC: EMR 01:28
DX: N76.4 Abscess of vulva (principal); L72.3 Sebaceous cyst; Z88.0 Allergy status to penicillin
CPT/HCPCS: 10060; 99284

== ENCOUNTER 2017-08-03 21:13 | Emergency (ER) | payer MEDICAID ==
[~2017-08-03] VITALS: Ht 167.6 cm; Wt 63.5 kg
[~2017-08-03 21:13] MED LIST changes: +DOXYCYCLINE MO100 MG ORAL
[2017-08-03 22:05] VITALS: BP 112/72
[2017-08-03 22:59] VITALS: BP 112/72
--- NOTE | 2017-08-03 23:04 | Emergency Room Report ---
History of Present Illness General Chief Complaint: Skin Rash/Abscess Source: Patient Present Illness HPI Is a 27-year-old female who had a recurrent abscess to the left vaginal area externally. I saw her recently diagnosed with an infected sebaceous cyst. She came in because the induration is still there. Is tender. No discharge. He wanted to see a surgeon to have it removed. Allergies: Coded Allergies: PENICILLINS (Verified Adverse Reaction, Mild, unknown, 07/23/17) nausea and vomiting Patient History Past Medical History: see triage record, old chart reviewed Past Surgical History: none Pertinent Family History: none Social History: Denies: smoking Last Menstrual Period: Jul Now: No Immunizations: other Reviewed Nursing Documentation: PMH: Agreed, PSxH: Agreed Nursing Documentation-PMH Hx Cardiac Problems: No Hx Cancer: No Hx Gastrointestinal Problems: No - appendectomy 07/2017 Hx Neurological Problems: No Review of Systems Eye: Denies: eye pain, blurred vision ENT: Denies: ear pain, nose congestion, throat swelling Respiratory: Denies: cough, shortness of breath Cardiovascular: Denies: chest pain, palpitations Gastrointestinal: Denies: abdominal pain, diarrhea, nausea, vomiting Musculoskeletal: Denies: back pain, joint pain Skin: Denies: rash Neurological: Denies: headache, numbness Endocrine: Denies: increased thirst, increased urine Hematologic/Lymphatic: Denies: easy bruising All Other Systems: negative except mentioned in HPI Physical Exam Vital Signs Date Time Temp Pulse Resp B/P (MAP) Pulse Ox O2 Delivery O2 Flow Rate FiO2 08/03/17 21:59 98.1 81 16 112/72 99 Room Air vitals normal Sp02 EP Interpretation: reviewed, normal General Appearance: well appearing, no apparent distress, alert Head: normocephalic, atraumatic Eyes: bilateral eye PERRL, bilateral eye EOMI ENT: hearing grossly normal, normal pharynx Neck: full range of motion, supple, no meningismus Respiratory: chest non-tender, lungs clear, normal breath sounds Cardiovascular #1: regular rate, rhythm, no murmur Gastrointestinal: normal bowel sounds, non tender, no mass, no organomegaly, no bruit, non-distended Genitourinary: other - indurated area to left lateral suprapubic vaginal area. no fluctuant. Musculoskeletal: back normal, gait/station normal, normal range of motion Psychiatric: mood/affect normal Skin: warm/dry Medical Decision Making Diagnostic Impression: Primary Impression: Sebaceous cyst ER Course Patient with a sebaceous cyst in the vaginal/groin area. It is indurated so I see no evidence of infection. I offered to see a 90 again she is any pus. She may need definitive surgical removal. I attempted last time but she was in too much pain. She does not want to have it done here. She went to see a surgeon. Explained to the patient that there is no need for emergent surgery. This can be done in the office or surgical center. She may need to be sedated for it. I explained to patient that she can followup with her primary care for referral to see a surgeon. Patient was not happy with the fact that she can't see a surgeon right now. She got up and left. Last Vital Signs Date Time Temp Pulse Resp B/P (MAP) Pulse Ox O2 Delivery O2 Flow Rate FiO2 08/03/17 21:59 98.1 81 16 112/72 99 Room Air Status: unchanged Disposition: HOME, SELF-CARE Condition: Stable AJIT ZAYAS M.D. Aug 03, 2017 23:04
== END 2017-08-03 23:00 | disposition home or self-care (01) ==
LOC: EMR 22:10
DX: N94.89 Other specified conditions associated with female genital organs and menstrual cycle (principal); Z88.0 Allergy status to penicillin
CPT/HCPCS: 99282

== ENCOUNTER 2018-01-22 15:05 | Emergency (ER) | payer MEDICAID ==
[~2018-01-22] VITALS: Ht 167.6 cm; Wt 65.8 kg
[2018-01-22 15:49] VITALS: BP 128/85
[2018-01-22 16:07] LABS: BASOPHILS % (AUTO) 1.4 % (0.0-2.0); EOSINOPHILS % (AUTO) 0.4 % (0.0-3.0); HEMATOCRIT 34.2 % (37.0-47.0); HEMOGLOBIN 10.3 G/DL (12.0-16.0); MEAN CORPUSCULAR VOLUME 72 FL (80-99); MONOCYTES % (AUTO) 5.3 % (1.0-10.0); PLATELET COUNT 180 K/UL (150-450); RED BLOOD COUNT 4.73 M/UL (4.20-5.40); RED CELL DISTRIBUTION WIDTH 16.5 % (11.6-14.8); WHITE BLOOD COUNT 4.4 K/UL (4.8-10.8)
[2018-01-22 16:20] LABS: ANION GAP 10 mmol/L (5-15); BLOOD UREA NITROGEN 14 mg/dL (7-18); CALCIUM 8.9 MG/DL (8.5-10.1); CARBON DIOXIDE 24 MMOL/L (21-32); CHLORIDE 106 MMOL/L (98-107); CREATININE 0.8 MG/DL (0.55-1.30); POTASSIUM 3.5 MMOL/L (3.5-5.1); SODIUM 139 MMOL/L (136-145)
[2018-01-22 16:21] LABS: APPEARANCE,URINE CLOUDY; BILIRUBIN, URINE NEGATIVE (NEGATIVE); GLUCOSE, URINE (UA) NEGATIVE (NEGATIVE); KETONES,URINE 1+ (NEGATIVE); LEUKOCYTE ESTERASE ,URINE 2+ (NEGATIVE); NITRITE,URINE NEGATIVE (NEGATIVE); PH,URINE 5 (4.5-8.0); PROTEIN,URINE 3+ (NEGATIVE); UROBILINOGEN,URINE NORMAL MG/DL (0.0-1.0)
[2018-01-22 16:23] LABS: COLOR,URINE BROWN
[2018-01-22 16:24] LABS: ALANINE AMINOTRANSFERASE 17 U/L (12-78); ALBUMIN 4.4 G/DL (3.4-5.0); ALBUMIN/GLOBULIN RATIO 1.2 (1.0-2.7); ALKALINE PHOSPHATASE 62 U/L (46-116); ASPARTATE AMINO TRANSFERASE 15 U/L (15-37); BILIRUBIN,TOTAL 0.6 MG/DL (0.2-1.0)
--- NOTE | 2018-01-22 18:28 | Emergency Room Report ---
History of Present Illness General Chief Complaint: Vaginal Source: Patient Present Illness HPI This patient presents with an early start of her menstrual cycle (about one week early). She states also the cycle has been very heavy for the past 2 days. She has had a history of anemia and is concerned she could be getting more anemic. She denies abdominal or pelvic pain. She denies fever or chills. She denies nausea or vomiting. She has no other complaints. Allergies: Coded Allergies: PENICILLINS (Verified Adverse Reaction, Mild, unknown, 07/23/17) nausea and vomiting Patient History Past Medical History: see triage record, other - anemia Past Surgical History: appy Social History: Reports: smoking, alcohol use - Occassional, drug use - THC Last Menstrual Period: 12/29/17 Now: No Reviewed Nursing Documentation: PMH: Agreed; PSxH: Agreed Nursing Documentation-PMH Past Medical History: No History, Except For Hx Cardiac Problems: No Hx Cancer: No Hx Gastrointestinal Problems: No - appendectomy 07/2017 Hx Neurological Problems: No Review of Systems All Other Systems: negative except mentioned in HPI Physical Exam Vital Signs Date Time Temp Pulse Resp B/P (MAP) Pulse Ox O2 Delivery O2 Flow Rate FiO2 01/22/18 15:19 98.2 92 18 128/85 97 Room Air 98.2 Sp02 EP Interpretation: reviewed, normal General Appearance: no apparent distress, alert, GCS 15, non-toxic Head: normocephalic, atraumatic Eyes: bilateral eye normal inspection, bilateral eye PERRL ENT: hearing grossly normal, normal pharynx, no angioedema, normal voice Neck: full range of motion, supple/symm/no masses Respiratory: chest non-tender, lungs clear, normal breath sounds, no respiratory distress, no retraction, no accessory muscle use, speaking full sentences Cardiovascular #1: regular rate, rhythm, no edema Gastrointestinal: normal bowel sounds, non tender, soft, non-distended, no guarding, no rebound Rectal: deferred Genitourinary: deferred Musculoskeletal: back normal, gait/station normal, normal range of motion, non- tender Neurologic: alert, oriented x3, responsive, motor strength/tone normal, sensory intact, speech normal Psychiatric: judgement/insight normal, memory normal, mood/affect normal, no suicidal/homicidal ideation Skin: normal color, no rash, warm/dry, well hydrated Medical Decision Making Diagnostic Impression: Primary Impression: Menorrhagia Additional Impressions: Fibroid Ovarian cyst ER Course This patient presents with menorrhagia. She also has irregular menses. She is found to have a fibroid. It is only 2.7 cm. She also has a right ovarian cyst. Otherwise, the patient's workup is unremarkable. The patient's hCG is negative. The patient does have mild anemia at her baseline. The patient was educated that she should take iron and vitamin C supplements. She states that she does have these. She agrees to restart these supplements. Patient was reassured and overall her evaluation is benign. She is instructed to follow closely with her primary care physician. She is given return precautions. Laboratory Tests Test 01/22/18 15:49 White Blood Count 4.4 K/UL (4.8-10.8) L Red Blood Count 4.73 M/UL (4.20-5.40) Hemoglobin 10.3 G/DL (12.0-16.0) L Hematocrit 34.2 % (37.0-47.0) L Mean Corpuscular Volume 72 FL (80-99) L Mean Corpuscular Hemoglobin 21.8 PG (27.0-31.0) L Mean Corpuscular Hemoglobin Concent 30.2 G/DL (32.0-36.0) L Red Cell Distribution Width 16.5 % (11.6-14.8) H Platelet Count 180 K/UL (150-450) Mean Platelet Volume 9.0 FL (6.5-10.1) Neutrophils (%) (Auto) 57.0 % (45.0-75.0) Lymphocytes (%) (Auto) 36.0 % (20.0-45.0) Monocytes (%) (Auto) 5.3 % (1.0-10.0) Eosinophils (%) (Auto) 0.4 % (0.0-3.0) Basophils (%) (Auto) 1.4 % (0.0-2.0) Prothrombin Time 10.6 SEC (9.30-11.50) Prothrombin Time INR 1.0 (0.9-1.1) PTT 23 SEC (23-33) Urine Color Brown Urine Appearance Cloudy Urine pH 5 (4.5-8.0) Urine Specific [place] 1.020 (1.005-1.035) Urine Protein 3+ (NEGATIVE) H Urine Glucose (UA) Negative (NEGATIVE) Urine Ketones 1+ (NEGATIVE) H Urine Occult Blood 5+ (NEGATIVE) H Urine Nitrite Negative (NEGATIVE) Urine Bilirubin Negative (NEGATIVE) Urine Urobilinogen Normal MG/DL (0.0-1.0) Urine Leukocyte Esterase 2+ (NEGATIVE) H Urine RBC 60-80 /HPF (0 - 2) H Urine WBC 5-10 /HPF (0 - 2) H Urine Squamous Epithelial Cells Few /LPF (NONE/OCC) Urine Bacteria Many /HPF (NONE) H Urine Yeast Moderate /HPF (NONE) H Urine HCG, Qualitative Negative (NEGATIVE) Sodium Level 139 MMOL/L (136-145) Potassium Level 3.5 MMOL/L (3.5-5.1) Chloride Level 106 MMOL/L (98-107) Carbon Dioxide Level 24 MMOL/L (21-32) Anion Gap 10 mmol/L (5-15) Blood Urea Nitrogen 14 mg/dL (7-18) Creatinine 0.8 MG/DL (0.55-1.30) Estimate Glomerular Filtration Rate > 60 mL/min (>60) Glucose Level 92 MG/DL (74-106) Calcium Level 8.9 MG/DL (8.5-10.1) Total Bilirubin 0.6 MG/DL (0.2-1.0) Aspartate Amino Transferase (AST) 15 U/L (15-37) Alanine Aminotransferase (ALT) 17 U/L (12-78) Alkaline Phosphatase 62 U/L (46-116) Total Protein 8.0 G/DL (6.4-8.2) Albumin 4.4 G/DL (3.4-5.0) Globulin 3.6 g/dL Albumin/Globulin Ratio 1.2 (1.0-2.7) CT/MRI/US Diagnostic Results CT/MRI/US Diagnostic Results : Imaging Test Ordered: Pelvic US Impression See official report. +fibroid. +R. ovarian cyst. Last Vital Signs Date Time Temp Pulse Resp B/P (MAP) Pulse Ox O2 Delivery O2 Flow Rate FiO2 01/22/18 15:49 98.2 86 18 128/85 97 Room Air 98.2 Status: improved Disposition: HOME, SELF-CARE Condition: Improved Referrals: [facility],REFERRING (PCP) KASANDRA MOLINA D.O. January 22, 2018 18:28
[2018-01-22] MEDS ORDERED: NITROFURANTOIN100 M2 ORAL (18:45)
[2018-01-22] MEDS ORDERED: DIFLUCAN200 MG ORAL (18:45)
[2018-01-22 20:00] VITALS: BP 128/85
--- NOTE | 2018-01-23 09:08 | Diagnostic Imaging Report ---
Indication: Negative test. Heavy vaginal bleeding Technique: Transabdominal and transvaginal images Comparison: none Findings: Uterus measures 8.7 cm in length by 4.6 cm AP. Endometrium measures 10 mm thick. Endometrial configuration suggests septate uterus. There is questionably a small 2.8 cm diameter uterine fundal fibroid. Left ovary measures 3.5 cm in length. Right ovary measures 3.2 cm in length. No adnexal mass demonstrated. There is trace free cul-de-sac fluid. Impression: Possible small fundal fibroid Otherwise unremarkable exam Trace free cul-de-sac fluid, presumably physiologic This agrees with the preliminary interpretation provided overnight by [facility] teleradiology service.
== END 2018-01-22 20:00 | disposition home or self-care (01) ==
LOC: EMR 17:31
DX: N92.0 Excessive and frequent menstruation with regular cycle (principal); N83.201 Unspecified ovarian cyst, right side; D25.9 Leiomyoma of uterus, unspecified; Z88.0 Allergy status to penicillin
CPT/HCPCS: 36415; 76830; 76856; 80053; 81003; 81025; 85025; 85610; 85730; 87086; 87181; 96374; 99284

== ENCOUNTER 2018-03-20 22:15 | Emergency (ER) | payer MEDICAID ==
[~2018-03-20] VITALS: Ht 167.6 cm; Wt 65.8 kg
[~2018-03-20 22:15] MED LIST changes: +DIFLUCAN200 MG ORAL; +NITROFURANTOIN100 M2 ORAL
[2018-03-20] MEDS ORDERED: NKM (22:22)
[2018-03-20 22:30] VITALS: BP 122/66
[2018-03-20] MEDS ORDERED: MUPIROCIN22 GM TOPIC (22:36)
[2018-03-20] MEDS ORDERED: BACTRIM DS TAB1 EAC1 ORAL (22:36)
--- NOTE | 2018-03-20 22:36 | Emergency Room Report ---
History of Present Illness General Chief Complaint: Skin Rash/Abscess Source: Patient Present Illness HPI This a 28-year-old female who will get recurrent abscess around her vaginal area. This occur monthly during her menstrual period. She has small 1 forming right now. Painful. Has ID in the past. No nausea no vomiting. No fever chills. Denies any other complaint. Allergies: Coded Allergies: No Known Allergies (Unverified , 03/20/18) Patient History Past Medical History: see triage record, old chart reviewed Past Surgical History: none Pertinent Family History: none Social History: Denies: smoking Last Menstrual Period: 03/13/18 Now: No : 3 Para: 1 Immunizations: other Reviewed Nursing Documentation: PMH: Agreed; PSxH: Agreed Nursing Documentation-PMH Hx Cardiac Problems: No Hx Cancer: No Hx Neurological Problems: No Review of Systems Eye: Denies: eye pain, blurred vision ENT: Denies: ear pain, nose congestion, throat swelling Respiratory: Denies: cough, shortness of breath Cardiovascular: Denies: chest pain, palpitations Gastrointestinal: Denies: abdominal pain, diarrhea, nausea, vomiting Musculoskeletal: Denies: back pain, joint pain Skin: Denies: rash Neurological: Denies: headache, numbness Endocrine: Denies: increased thirst, increased urine Hematologic/Lymphatic: Denies: easy bruising All Other Systems: negative except mentioned in HPI Physical Exam Vital Signs Date Time Temp Pulse Resp B/P (MAP) Pulse Ox O2 Delivery O2 Flow Rate FiO2 03/20/18 22:19 98.2 73 14 107/67 97 Room Air 98.2 vitals normal Sp02 EP Interpretation: reviewed, normal General Appearance: well appearing, no apparent distress, alert Head: normocephalic, atraumatic Eyes: bilateral eye PERRL, bilateral eye EOMI ENT: hearing grossly normal, normal pharynx Neck: full range of motion, supple, no meningismus Respiratory: chest non-tender, lungs clear, normal breath sounds Cardiovascular #1: regular rate, rhythm, no murmur Gastrointestinal: normal bowel sounds, non tender, no mass, no organomegaly, no bruit, non-distended Genitourinary: other - Pelvic done with female RN as it security analyst. She has small indurated area to left groin. Mild tenderness. Musculoskeletal: back normal, gait/station normal, normal range of motion Psychiatric: mood/affect normal Skin: warm/dry Medical Decision Making Diagnostic Impression: Primary Impression: Abscess ER Course Patient with recurrent abscess. Nothing to be I and D at this moment. We will put her on antibiotics and antibody ointment. No evidence of deep infection. Some necrotizing fasciitis. Last Vital Signs Date Time Temp Pulse Resp B/P (MAP) Pulse Ox O2 Delivery O2 Flow Rate FiO2 03/20/18 22:19 98.2 73 14 107/67 97 Room Air 98.2 Status: unchanged Disposition: HOME, SELF-CARE Condition: Stable Scripts Trimethoprim/Sulfamethoxazole 160/800* (BACTRIM DS TABLET*) 1 Each Tablet 1 TAB ORAL Q12H, #14 TAB 0 Refills Prov: AJIT ZAYAS M.D. 03/20/18 Mupirocin* (MUPIROCIN*) 22 Gm Oint...g. 1 APPLIC TOPIC THREE TIMES A DAY, #22 GM Prov: AJIT ZAYAS M.D. 03/20/18 Patient Instructions: Abscess Additional Instructions: Clean area with hydrogen peroxide and then apply antibiotic ointment. Follow- up your doctor in 7 days. Return if symptom worsen. AJIT ZAYAS M.D. Mar 20, 2018 22:36
[2018-03-20 23:45] VITALS: BP 122/66
== END 2018-03-20 23:45 | disposition home or self-care (01) ==
LOC: EMR 22:36
DX: L02.818 Cutaneous abscess of other sites (principal)
CPT/HCPCS: 99284